=== PATIENT | female | born 1960 | race Caucasian/White ===

== ENCOUNTER 2022-01-27 08:15 | Day surgery (SDC) | payer OTHER ==
[~2022-01-27] VITALS: Ht 152.4 cm; Wt 80.7 kg
[2022-01-27] MEDS ORDERED: LIDOCAINE 2% 100 MG/5 ML UJET TP ONE (08:47)
[2022-01-27] MEDS ORDERED: fentaNYL citrate 0.05 MG/ML VIAL ONE (08:47)
[2022-01-27] MEDS ORDERED: MIDAZOLAM 2 MG/2 ML VIAL ONE (08:47)
[2022-01-27] MEDS ORDERED: diphenhydrAMINE 50 MG/ML VIAL ONE (08:47)
[2022-01-27] MEDS ORDERED: MIDAZOLAM 2 MG/2 ML VIAL IVP ONE (13:40)
[2022-01-27] MEDS ORDERED: fentaNYL citrate 0.05 MG/ML VIAL IVP ONE (13:40)
== END 2022-01-27 10:30 | disposition home or self-care (01) ==
LOC: MMU 08:15 → MDS 08:15
PROVIDERS: ATTEND Internal Medicine Gastroenterology
DX: Z12.11 Encounter for screening for malignant neoplasm of colon (principal); K63.5 Polyp of colon; K57.30 Diverticulosis of large intestine without perforation or abscess without bleeding; K31.89 Other diseases of stomach and duodenum; K29.70 Gastritis, unspecified, without bleeding; K21.9 Gastro-esophageal reflux disease without esophagitis; K30 Functional dyspepsia; K44.9 Diaphragmatic hernia without obstruction or gangrene; I10 Essential (primary) hypertension; E78.5 Hyperlipidemia, unspecified; E11.9 Type 2 diabetes mellitus without complications; Z80.3 Family history of malignant neoplasm of breast; Z79.899 Other long term (current) drug therapy; Z20.822 Contact with and (suspected) exposure to COVID-19
CPT/HCPCS: 43239; 45385; 87426; J2250; J3010; J1200